=== PATIENT | male | born 1960 | race Caucasian/White ===

== ENCOUNTER 2024-07-25 06:58 | Observation (INO) ==
--- NOTE | 2024-07-16 10:32 | Anesthesiology Consultation ---
Date of Service July 16, 2024 Assessment & Plan (1) Encounter for pre-operative examination: Chart Review Chart Review: Acceptable Risk for Surgery and Patient NOT seen in Pre Admission Testing -Infectious Disease screening: Per PAT nursing assessment on 07/15/24. No known infectious disease contacts in past 10 days or current infectious disease symptoms. No recent travel outside the country. History Surgery Operation Date: 07/25/24 07:30 Proposed Procedures p Transurethral Resection Prostate - Alexander Christensen, Height/Weight Height: 5 ft 10 in Weight: 92.986 kg Allergies Allergy/AdvReac Type Severity Reaction Status Date / Time adhesive Allergy Intermediate Rash Verified 07/15/24 15:03 Penicillins Allergy Unknown Unknown Verified 07/15/24 15:03 Medications Home Medications Medication Instructions Recorded Confirmed Last Taken dutasteride 0.5 mg capsule 0.5 mg PO QPM 07/15/24 07/15/24 Unknown (Avodart) tamsulosin 0.4 mg capsule (Flomax) 0.4 mg PO QPM 07/15/24 07/15/24 Unknown Past Medical History Medical History Adverse effect of anesthesia "When I had my knee procedure at [facility] in 1995 I had a reaction from the anesthesia where I got sweaty and clammy" pt unsure of what was given BPH (benign prostatic hyperplasia) Hypertension "regulated with tamsulosin" Kidney stones "according to my doctor, they are there" as per patient Migraines Occular Snoring Past Family History Family History Father BPH (benign prostatic hyperplasia) December 2022 - urinary retention requiring ED visit - several subsequent obstructions of Sandhu catheter due to blood clots. During irrigation of catheter, a bladder diverticula ruptured requiring surgery Grandfather Diabetes Prostate cancer Grandmother Hypertension Past Surgical History Surgical History Hx of arthroscopy of right knee x2 [facility] Meniscus Tear then ACL repair/Chondroplasty Hx of colonoscopy (2019) Hx of wisdom tooth extraction Social History Smoking Status: Never smoker Do You Dip or Chew Tobacco: No Hx Alcohol Use: Yes Alcohol type: beer alcohol intake frequency: a few times a week Hx Substance Use: No substance use type: does not use Lab Results Anesthesia Preop Results Results Anesthesia Widget: WBC 5.61 K/ul (4.8-10.8) 07/05/24 Hgb 15.5 g/dl (14.0-18.0) 07/05/24 Hct 45.4 % (42.0-52.0) 07/05/24 Plt 189 K/uL (130-400) 07/05/24 Na 139 mmol/L (136-145) 07/05/24 K 3.9 mmol/L (3.5-5.1) 07/05/24 Cl 105 mmol/L (98-107) 07/05/24 CO2 30 mmol/L (21-32) 07/05/24 BUN 19 mg/dl (6-23) 07/05/24 Creat 1.03 mg/dl (0.6-1.4) 07/05/24 Glucose Level 130 mg/dl (70-99(Fasting)) H 07/05/24 Testing Laboratory Results 07/05/24= URINE CULTURE: No growth- less than 1000 colonies/ml Electrocardiogram Date: 07/05/24 Findings: + SB @ (58bpm) Poor R wave progression, consider anterior GA vs lead placement vs LVH (No physical limitations; no significant cardiac risk factors- discussed with Dr Samson jimenez to proceed) Chest X-Ray Date: 07/05/24 Findings: + NAD Pulmonary Parenchyma: Prominent bilateral aditi with increased bronchovascular markings. Lungs are clear bilaterally. No evidence of consolidation, collapse, or focal opacities. No pulmonary nodules identified. No evidence of pleural effusion or pleural thickening.
[~2024-07-25 06:58] MED LIST: DEXAMETHASONE SOD INJ 4 MG/ML VIAL ONE; GLYCOPYRROLATE 0.2 MG/ML VIAL ONE; LIDOCAINE 2% 2 ML VIAL/AMP(20MG/ML) INFIL ONE; MIDAZOLAM HCL 1 MG/ML 2ML VIAL ONE; ONDANSETRON INJ 2 MG/ML 2 ML VIAL ONE; PROPOFOL IV EMULSION 10 MG/ML 20 ML VIAL IV ONE; fentaNYL citrate PF 100 MCG/2 ML VIAL ONE
--- OUTSIDE RECORDS SUMMARY | 2024-07-25 07:02 | External Medical Summary | Continuity of Care Document ---
Author Name Unknown Organization [facility] [address] [facility] 2 [address] [id number] Care Team Providers Care Veterinary Technician Instructor Name Role Phone Myrtle Cabrera Primary Care Physician [phone] Encounter [facility] [id number] Date(s): 07/04/24 - 07/04/24 [facility] [address] [facility] [address] [id number] Encounter Diagnosis Seborrheic keratoses(Discharge Diagnosis) - 07/04/24 Roper angioma(Discharge Diagnosis) - 07/04/24 History of skin cancer(Discharge Diagnosis) - 07/04/24 Family history of skin cancer(Discharge Diagnosis) - 07/04/24 Discharge Disposition: Home or Self Care Attending Physician: TISHA Merlos Dawn M Allergies, Adverse Reactions, Alerts Substance Criticality Severity Reaction Reaction Severity Status penicillins unknown Active Assessment and Plan Extracted from: Title:Dermatology Office Visit Note Author:Jere wagn PA-C, Dawn M Date:07/04/24 1.Seborrheic keratoses SEBORRHEIC KERATOSES - - chronic and stable - discussed the likely benign and genetic nature of these lesions. Watchful waiting. 2.Roper angioma chronic and stable -ROPER ANGIOMAS - discussed the likely benign and genetic nature of these lesions. Watchful waiting. 3.History of skin cancer 4.Family history of skin cancer Reviewed sun protection with SPF 30 or higher applied every 80 minutes and use of sun protective clothing and a hat. Call with questions or concerns. Follow up 12 months. Patient in agreement with plan Immunizations Given and Recorded Vaccine Date Status Refusal Reason SARS-CoV-2 mRNA-1273 (6y+ bivalent) 1 05/18/22 Rec orded SARS-CoV-2 (COVID-19) mRNA-1273 vaccine 2 06/01/21 Recorded SARS-CoV-2 (COVID-19) mRNA-1273 vaccine 3 11/16/20 Recorded SARS-CoV-2 (COVID-19) mRNA-1273 vaccine 4 10/19/20 Recorded zoster vaccine, inactivated 07/07/20 Given zoster vaccine, inactivated 12/02/19 Given tetanus/diphtheria/pertuss, acel (Tdap) 12/02/19 G iven 1Result Comment: 2022-08-31: Historical information-source unspecified 2Result Comment: 2022-02-24: Historical information-source unspecified 3Result Comment: 2021-07-08: Historical information-source unspecified 4Result Comment: 2021-07-08: Historical information-source unspecified Medications Avodart 0.5 mg oral capsule Start: 11/17/23 11:36:00 AM EDT, 1 cap, PO, Daily, Disp# 90 cap, Refills: 3, Pharmacy: [id number] Start Date: 11/17/23 Stop Date: 11/11/24 Status: Ordered multivitamin Start: 07/08/21 8:38:00 AM EST, 1 tab, PO, Daily Start Date: 07/08/21 Status: Ordered tamsulosin 0.4 mg oral capsule Start: 12/05/23 10:05:00 AM EDT, 2 cap, PO, Daily, Disp# 180 cap, Refills: 3, Pharmacy: [id number] Start Date: 12/05/23 Status: Ordered Mental Status 07/04/24 Barriers to Learning one year None evide nt Mandatory Health Literacy Documentation Yes Health Literacy Communication Barriers N ever Primary Language Romansh Problem List Condition Confirmation Course Effective Dates Status Health St atus Informant BPH (benign prostatic hyperplasia) Confirmed Active Tremor of left hand Confirmed Active Chronic left hip pain Confirmed Active History of basal cell carcinoma Confirmed Active Ocular migraine Confirmed Active Piriformis syndrome of left side Confirmed Active Diagnosis Diagnosis Type Effective Dates Health Status Clinical Service Informant Roper angioma Discharge Diagnosis 07/04/24 History of skin cancer Discharge Diagnosis 07/04/24 Family history of skin cancer Discharge Diagnosis 07/04/24 Seborrheic keratoses Discharge Diagnosis 07/04/24 Procedures Procedure Date Related Diagnosis Body Site Status Hip X-ray 1 10/03/23 Completed Electrodesiccation with curettage 11/16/22 Completed Shave biopsy 2 09/21/22 Completed Colonoscopy 3 12/31/19 Completed Shave biopsy and cauterizati on of skin 4 07/22/19 Completed Electrodesiccation with curettage 03/19/19 Completed Electrodesiccation with curettage 03/19/19 Completed Electrodesiccation with curettage 03/19/19 Completed Mohs micrographic surgery 03/19/19 Completed Shave biopsy 5 12/20/18 Completed ACL - Anterior cruciate liga ment rupture Completed Chondroplasty Completed Meniscus Completed 1Mild osteoarthritis without acute fracture or dislocation 2right upper arm 3COLO to cecum normal. Repeat colonoscopy 10 years 4right mid back shave E D & C 5x6 right superior ear right posterior shoulder left chest left clavicle left shoulder left upper arm Social History Social History Type Response Smoking Status Never smoked cigaret felice Sex Male Sex Representation Male (finding) Dermatology Outpatient Note * TISHA Merlos Dawn M: PERFORM Event Display: Dermatology Outpt Note Authored Date: [id number] Chief Complaint skin check spot on each wrist may be new History of Present Illness Melissa Marinelli is a 63 year old patient returns to the clinic with a chief complaint ofskin check spot on each wrist may be new. hx basal cell, squamous cell. s/p Mohs surgery for BCC at R superior helix on 03/19/19. ED&C of SBCC right upper arm 11/16/22 Today,he denies itching, bleeding, oozing, crusting or evolving lesions. Patient has a personal history of SCC and BCC Family history: both parents had skin cancer Patient does use sunscreen. Patient reports history of blistering sunburns/tanning beds. He owns a boat. 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 Review of Systems Denies fever, chills, sweats, night sweats, weight loss, headache, visual change, stomach upset diarrhea and joint pain. Physical Exam Constitutional: Generally well appearing, well developed. Appears stated age. Eyes: Conjunctivae and lids without noted inflammation, lesion, mass, deformity or drainage. Cardiovascular: Swelling of the lower extremities not noted. Extremities pink, warm and dry. Extremities: Digits and nails without clubbing, cyanosis, petechiae, signs of ischemia, infectionor inflammation. Neurological / Psychiatric: Oriented to person, place and time. Appropriate mood and affect. No notable depression, anxiety or agitation. Complete skin exam was performed today including head, neck, chest, axillae, abdomen, groin, buttocks, back, bilateral upper and bilateral lower extremities. Palpation of the scalp, inspection of hair of scalp, eyebrows and finger and toenails was performed. The exam was within normal limits the exception of: PATIENT DECLINED AUTOMOTIVE DIAGNOSTIC TECHNICIAN BACK. CHESThyperkeratotic plaques and papules consistent with seborrheic keratoses ABDOMEN - multiple 2-3mm red vascular papules consistent with roper angiomas Findings otherwise unremarkable. No evidence of recurrence of SCC or BCC. Assessment/Plan 1.Seborrheic keratoses SEBORRHEIC KERATOSES - - chronic and stable - discussed the likely benign and genetic nature of these lesions. Watchful waiting. 2.Roper angioma chronic and stable -ROPER ANGIOMAS - discussed the likely benign and genetic nature of these lesions. Watchful waiting. 3.History of skin cancer 4.Family history of skin cancer Reviewed sun protection with SPF 30 or higher applied every 80 minutes and use of sun protective clothing and a hat. Call with questions or concerns. Follow up 12 months. Patient in agreement with plan Problem List/Past Medical History Ongoing BPH (benign prostatic hyperplasia) Chronic left hip pain History of basal cell carcinoma Ocular migraine Piriformis syndrome of left side Tremor of left hand Procedure/Surgical History Hip X-ray| Service Date: 10/03/2023Electrodesiccation with curettage| Service Date: 11/16/2022Shave biopsy| Service Date: 3Colonoscopy| Service Date: 12/31/2019ave biopsy and cauterization of skin| Service Date: 07/22/2019Electrodesiccation with curettage| Service Date: 03/19/2019Electrodesiccation with curettage| Service Date: 03/19/2019Electrodesiccation with curettage| Service Date: 03/19/2019Mohs micrographic surgery| Service Date: 03/19/2019Shave biopsy| Service Date: 12/20/2018ChondroplastyACL - Anterior cruciate ligament ruptureMeniscus Medications dutasteride(Avodart 0.5 mg oral capsule), 0.5 mg= 1 cap, PO, Daily, 3 refills multivitamin, 1 tab, PO, Daily tamsulosin(tamsulosin 0.4 mg oral capsule), 2 cap, PO, Daily Allergies penicillinsunknown Social History Smoking Status Never smoked cigarettes Alcohol Use:Current Type:Beer, Wine, Liquor Frequency:3-5 times per week Employment/School Status: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 Exercise Duration (average number of minutes):45 Times per week:1-2 times/week Exercise type:Rucking and hike 6-8 miles Home/Environment Lives with:Spouse Living situation:Home/Independent Feels unsafe at home:No - Comments: Home has smoke detectors. Wears seatbelt in the car. Uses sun protection when outdoors. Nutrition/Health Type of diet:Regular Caffeine intake amount:Drinks 1 can of soda a week and 1 cup of tea/day Other Details:Has not had a blood transfusion. No tattoos and has not been incarcerated. Has donated blood in the early . Sexual Sexually active:Yes Current partners:1 Self described orientation:Straight or heterosexual Substance Abuse - Denies Substance Abuse Tobacco - Denies Tobacco Use Family History BPH - Benign prostatic hypertrophy: Father. Gallbladder disease: Father. Guillain [place] syndrome: Father. Heart attack: PGM. Hypertension: PGM. Malignant tumor of lung: PGF. Stroke: PGM. Type II diabetes mellitus: MGF. Health Status Family Member(s) Electronic Signature on File Electronically Reviewed/Signed by: BALBINA Deshpande Author Signature Dt/Tm:07/04/2024 03:03 PM Department of Family Medicine Department of Dermatology [facility] Patient Care team information Care Team Personnel Name: TISHA Cabrera, Myrtle Craig Position: Physician Asst Exmpt - Family Med Member Role: Primary Care Provider Address: [address] [place] [address], [place] [address] [place] Care Team Related Persons Name: GAURI MARINELLI"
--- NOTE | 2024-07-25 07:08 | History & Physical Report ---
Date of Service July 25, 2024 Assessment & Plan (1) BPH w urinary obs/LUTS: (2) Elevated PSA: (3) Nephrolithiasis: (4) Renal cyst: Plan Large prostate with obstruction. Risks and benefits discussed at length for procedure. These include bleeding, infection, injury to surrounding tissues or organs, and risks associated with anesthesia. Patient states understanding and agrees to proceed. Will sign consent and proceed. Plan for Cystoscopy with TURP. Observation overnight post op History of Present Illness Primary Care Provider: Myrtle Cabrera PA-C Patient here for procedure. No changes in medical issues. No major changes in urinary issues. Continued issues and concerns. No change in pain or discomfort. No severe fevers or chills. No chest pain or shortness of breath. Risks and benefits discussed at length for procedure. These include bleeding, infection, injury to surrounding tissues or organs, and risks associated with anesthesia. Patient and/or family states understanding and agrees to proceed. Consent and supporting information completed. Allergies Allergy/AdvReac Type Severity Reaction Status Date / Time adhesive Allergy Intermediate Rash Verified 07/15/24 15:03 Penicillins Allergy Unknown Unknown Verified 07/15/24 15:03 Home Medications Medication Instructions Recorded Confirmed Type dutasteride 0.5 mg capsule 0.5 mg PO QPM 07/15/24 07/15/24 History (Avodart) tamsulosin 0.4 mg capsule (Flomax) 0.4 mg PO QPM 07/15/24 07/15/24 History Past Med/Surg History Problem List Encounter for pre-operative examination Renal cyst (Chronic) Nephrolithiasis (Acute) Elevated PSA (Acute) BPH w urinary obs/LUTS (Chronic) Medical History Kidney stones "according to my doctor, they are there" as per patient Migraines Occular Hypertension "regulated with tamsulosin" Snoring BPH (benign prostatic hyperplasia) Adverse effect of anesthesia "When I had my knee procedure at [facility] in 1995 I had a reaction from the anesthesia where I got sweaty and clammy" pt unsure of what was given Surgical History Hx of wisdom tooth extraction Hx of colonoscopy (2019) Hx of arthroscopy of right knee x2 [facility] Meniscus Tear then ACL repair/Chondroplasty Family History Father BPH (benign prostatic hyperplasia) December 2022 - urinary retention requiring ED visit - several subsequent obstructions of Sandhu catheter due to blood clots. During irrigation of catheter, a bladder diverticula ruptured requiring surgery Grandfather Diabetes Prostate cancer Grandmother Hypertension Social History Smoking Status: Never smoker Second Hand Exposure: No; Do You Dip or Chew Tobacco: No; Tobacco Cessation Education Requested by Patient: No Hx Alcohol Use: Yes Alcohol type: beer Hx Substance Use: No Preferred Language: Persian Communication Ability: Effective Steel Handler Required: No Beliefs That Will Affect Care: None marital status: Current Living Situation: Spouse current occupational status: employed current occupation: Teacher Other Information That Helps Us Care for You: No Feels Safe at Home: Yes Safety Concerns: Feels Safe At This Time Assistive Devices: Glasses Review of Systems All systems reviewed & are unremarkable except as noted in HPI & below Physical Exam Physical Exam: General: Alert/Arousable. No Acute illness. . HEENT: Inspection normal. Normal inspection of face. Normal inspection of neck. Psychologic: Normal affect/No change in mentation. Respiratory: No use of accessory muscles. No respiratory changes or exacerbation or changes with tachypnea or dyspnea. Cardiovascular: No tachycardia Skin: [place] and Dry. No new rashes or visible lesions. Abdomen: Normal inspection. No guarding. PG Care Time/CCT Total # of Minutes Spent Total Time Spent with Patient: Total time spent is greater than 50% in coordination of care (as documented) at patient's floor/unit and/or counseling patient: Coding Level of Care Code None Diagnoses BPH w urinary obs/LUTS N40.1; N13.8 Elevated PSA R97.20 Nephrolithiasis N20.0 Renal cyst N28.1
[2024-07-25] MEDS ORDERED: oxyCODONE/ACETAMINOPHEN 5mg/325mg TAB PO PRN (07:23)
[2024-07-25] MEDS ORDERED: oxyBUTYnin chloride 5 MG TAB PO PRN (07:23)
[2024-07-25] MEDS ORDERED: PHENAZOPYRIDINE HCL 200 MG TAB PO PRN (07:23)
[2024-07-25] MEDS ORDERED: MoRPHine SULFATE 2 MG/ML CARP IV PRN (07:23)
[2024-07-25] MEDS: LACTATED RINGER'S 1,000 ML IV SCH (07:30)
[2024-07-25] MEDS ORDERED: fentaNYL citrate PF 100 MCG/2 ML VIAL IV PRN (07:41)
[2024-07-25] MEDS ORDERED: ePHEDrine sulfate 50 MG/ML AMP IV PRN (07:41)
[2024-07-25] MEDS ORDERED: ATROPINE SULFATE 0.1 MG/ML 10ML SYR IV PRN (07:41)
[2024-07-25] MEDS ORDERED: PROMETHAZINE HCL 6.25 MG in SODIUM CHLORIDE 0.9% 50 ML IV PRN (07:41)
[2024-07-25] MEDS: ceFAZolin 2000MG 2,000 MG/15 ML SYR IV SCH ×2 (08:16→08:46)
[2024-07-25] MEDS ORDERED: ePHEDrine sulfate 50 MG/5 ML SYR ONE (09:14)
--- NOTE | 2024-07-25 09:42 | Operative Report ---
PG Post Operative Report Pre & Post Diagnosis Operation Date: 07/25/24 08:35 Pre-Op Diagnosis: Benign prostatic hyperplasia with Urinary Obstruction / Lower Urinary Tract Post-Op Diagnosis: Benign prostatic hyperplasia with Urinary Obstruction / Lower Urinary Tract I identified the patient and participated in the time-out.: Yes Procedure Operation Date: 07/25/24 08:35 Actual Procedures p Transurethral Resection of Prostate with dilation of the urethra (Not Applicable) - Alexander Christensen DO Surgeon Alexander Christensen, II, DO Park Recreation Manager None Estimated Blood Loss 10 Findings Consistent with Post-Op Diagnosis Large Prostate with obstruction. Specimens Prostate adenoma. Drains 22Fr [address] C[address]ter Anesthesia Type General Complications none Disposition Disposition: Recovery Room Indications Patient with obstruction due to prostate enlargement. Risks and benefits discussed at length. Stricture of the meatus dilated Description of Procedure Patient was consented and brought back to the operating room. Patient was placed under anesthesia in the supine position and moved to the dorsal lithotomy po sition. Patient was prepped and draped in the regular sterile fashion. A time out was completed. A 30degree Cystoscope was placed into the bladder and the entire bladder was examined. The meatus was narrowed with area of stricture and was dilated. This allowed the scope to be placed. The UO's were identified as well as the bladder neck, trigone, dome, and the other important landmarks. The prostatic urethra and large lobes/adenoma was assessed and the veru and bladder neck identified and area/size was assessed. The resection scope was placed and the fine bipolar loop was selected. Starting at the 5 and 7 o'clock positions, a channel was created from bladder neck to the veru. This was resected down. Attention was then taken to the 1 and 11 clock position. The prostate was re sected down to capsule fibers. The resection was then taken down towards the posterior channel. Significant prostate tissue was debulked. The Specimen was removed and sent for analysis. The resection bed and any bleeding areas were fulgurated/cauterized and the entire area inspected. All bleeding was controlled. The bladder was inspected a final time. The bladder was emptied and irrigated. All specimen and debris was removed. The scope was removed with the bladder partially full. A catheter was placed and balloon elevated. This was easily irrigated. The patient was cleaned, aroused from anesthesia, and transferred to the pacu in stable condition having tolerated the procedure well with no complications. I was present and participated in all aspects of the procedure. The patient will be monitored in the PACU until transferred. Will plan to maintain catheter for approximately 5 to 7 days. Will monitor overnight. Will have patient follow-up in approximately 7 days for catheter removal and pathology review I attest to the content of the Intraoperative Record and any orders documented therein. Any exceptions are noted below.
[2024-07-25 10:14] LABS: Hematocrit (blood only) 41.9 % (42.0-52.0); Hemoglobin 14.6 g/dl (14.0-18.0); Mean Corpuscular Hemoglobin 31.1 pg (25.0-34.0); Mean Corpuscular Hgb Conc 34.8 g/dL (32.0-36.0); Mean Corpuscular Volume 89.3 fL (80.0-100.0); Mean Platelet Volume 9.7 fL (9.4-12.4); Platelet Count 169 K/uL (130-400); RDW Coefficient of Variation 12.7 % (11.5-14.5); RDW Standard Deviation 41.6 fL (36.4-46.3); Red Blood Count 4.69 M/uL (4.70-6.10); White Blood Count 5.16 K/ul (4.8-10.8)
[2024-07-25] MEDS: DIATRIZOATE MEGLUMINE 30% 100ML VIAL INSTIL ONE (10:24)
[2024-07-25 10:34] LABS: Albumin Globulin Ratio 1.9 (0.9-2); Albumin Level 3.9 gm/dl (3.4-5.0); BUN Creatinine Ratio 15.5 (10-20); Bilirubin,Total 0.8 mg/dl (0.2-1.0); Calcium 8.6 mg/dl (8.6-10.3); Creatinine Clr Calc Pharmacy 90.5 ml/min; Globulin 2.1 gm/dl (2.5-4.0); Potassium 4.1 mmol/L (3.5-5.1)
--- NOTE | 2024-07-25 11:17 | Anesthesiology Progress Note ---
Date of Service July 25, 2024 Anesthesia Post Procedure Vital Signs Vital Signs: Temp Pulse Pulse Resp BP Pulse Ox O2 Del Method 07/25/24 11:00 60 12 134/83 94 Room Air 07/25/24 10:45 59 L 14 133/82 94 Room Air 07/25/24 10:30 67 12 133/85 94 Room Air 07/25/24 10:20 36.3 C L 60 12 130/77 95 Room Air 07/25/24 10:10 59 L 18 139/76 95 Room Air 07/25/24 10:00 59 L 16 146/72 H 97 Oxymask 07/25/24 09:50 57 L 14 128/76 96 Oxymask 07/25/24 09:40 36.6 C 69 15 131/80 96 Oxymask 07/25/24 07:25 36.5 C 63 20 144/92 H 93 Room Air O2 Flow Rate 07/25/24 11:00 07/25/24 10:45 07/25/24 10:30 07/25/24 10:20 07/25/24 10:10 07/25/24 10:00 5 07/25/24 09:50 5 07/25/24 09:40 5 07/25/24 07:25 Transfer of Care Handoff Completed per policy Notes Mental Status: alert / awake / arousable and participated in evaluation Nausea / Vomiting: adequately controlled Pain: adequately controlled Airway Patency, RR, SpO2: stable & adequate BP & HR: stable & adequate Hydration State: stable & adequate Anesthetic Complications: no major complications apparent and Pt Satisfied with anesthetic care
[2024-07-25] MEDS: DOCUSATE SODIUM 100 MG CAP PO SCH (12:55)
[2024-07-25 19:17] VITALS: RESP 16
[2024-07-25] MEDS: TAMSULOSIN HCL 0.4 MG CAP PO SCH (20:07)
[2024-07-26 08:15] LABS: Hematocrit (blood only) 42.3 % (42.0-52.0); Hemoglobin 14.7 g/dl (14.0-18.0); Mean Corpuscular Hemoglobin 31.1 pg (25.0-34.0); Mean Corpuscular Hgb Conc 34.8 g/dL (32.0-36.0); Mean Corpuscular Volume 89.4 fL (80.0-100.0); Mean Platelet Volume 9.8 fL (9.4-12.4); Platelet Count 185 K/uL (130-400); RDW Coefficient of Variation 12.8 % (11.5-14.5); RDW Standard Deviation 41.9 fL (36.4-46.3); Red Blood Count 4.73 M/uL (4.70-6.10)
[2024-07-26 08:51] LABS: Bilirubin,Total 1.2 mg/dl (0.2-1.0)
[2024-07-26 08:57] LABS: Albumin Globulin Ratio 1.6 (0.9-2); BUN Creatinine Ratio 18.3 (10-20); Creatinine Clr Calc Pharmacy 94.4 ml/min; Globulin 2.5 gm/dl (2.5-4.0); Total Protein 6.5 gm/dl (6.0-8.3)
--- NOTE | 2024-07-26 10:20 | Urology Progress Note ---
Date of Service July 26, 2024 Assessment & Plan (1) BPH w urinary obs/LUTS: Plan POD #1 s/p Transurethral Resection of Prostate with dilation of the urethra with Dr. Christensen Doing well, progressing as expected Afebrile with stable vitals. Labs reviewed - WBC 14.10, Hemoglobin 14.7, Creatinine 0.[address] Sandhu catheter intact, patent and draining clear urine with CBI on slow CBI clamped @ 0950- will reassess later this AM Maintain Sandhu catheter Anticipate home with Sandhu catheter later today presuming urine appropriate and he continues to progress as expected Expected clinical course reviewed, all questions answered Will arrange outpatient follow-up with our service for voiding trial Pt reassessed Urine remains clear off CBI Stable for discharge home with Sandhu catheter in place Discharge instructions reviewed, all questions were answered Admission and Anticipated Discharge Date Admission Date: July 25, 2024 Subjective Pt seen at bedside today Awake and sitting in bedside chair on arrival No acute distress Overall feeling well Denies pain No f/c/n/v Sandhu draining clear yellow urine with CBI on slow Tolerating diet Ambulating without issue Review of Systems Constitutional: as per Subjective / HPI Genitourinary: + as per Subjective / HPI Physical Exam Constitutional: no acute distress Respiratory: no respiratory distress and no labored breathing Neurologic: moves all extremities and awake Psychiatric: A+Ox3, euthymic affect Genitourinary: Sandhu intact Results & Data Vital Signs (Past 12 Hours) Vital Signs Temp Pulse Resp BP Pulse Ox O2 Del Method 07/26/24 07:49 36.6 C 62 16 132/74 94 Room Air 07/26/24 03:13 36.8 C 67 16 109/69 92 Room Air 07/25/24 23:22 36.7 C 70 16 122/69 92 Room Air PG Care Time/CCT Total # of Minutes Spent Total Time Spent with Patient: Total time spent is greater than 50% in coordination of care (as documented) at patient's floor/unit and/or counseling patient: Coding Level of Care Code None Diagnoses BPH w urinary obs/LUTS N40.1; N13.8
[2024-07-26 10:39] VITALS: BP 143/76; PULSE 67; TEMP 97.7; O2SAT 96
--- NOTE | 2024-07-26 15:01 | Discharge Summary ---
Date of Service July 26, 2024 Admission HPI Per Admitting Provider Patient here for procedure. No changes in medical issues. No major changes in urinary issues. Continued issues and concerns. No change in pain or discomfort. No severe fevers or chills. No chest pain or shortness of breath. Risks and benefits discussed at length for procedure. These include bleeding, infection, injury to surrounding tissues or organs, and risks associated with anesthesia. Patient and/or family states understanding and agrees to proceed. Consent and supporting information completed. Admission Exam Per Admitting Provider General: Alert/Arousable. No Acute illness. . HEENT: Inspection normal. Normal inspection of face. Normal inspection of neck. Psychologic: Normal affect/No change in mentation. Respiratory: No use of accessory muscles. No respiratory changes or exacerbation or changes with tachypnea or dyspnea. Cardiovascular: No tachycardia Skin: Many and Dry. No new rashes or visible lesions. Abdomen: Normal inspection. No guarding. Principal Diagnosis BPH w/LUTS Discharge Exam Constitutional well developed and well nourished; no acute distress Respiratory normal respiratory effort; no respiratory distress and no labored breathing Musculoskeletal Head/Neck/Chest: normocephalic Skin no rashes, warm and dry Neurologic moves all extremities and awake Psychiatric A+Ox3, euthymic affect Genitourinary Sandhu intact and draining clear yellow urine Discharge Data Allergies Allergy/AdvReac Type Severity Reaction Status Date / Time adhesive Allergy Intermediate Rash Verified 07/25/24 07:18 Penicillins Allergy Unknown Unknown Verified 07/25/24 07:18 Procedures Performed Operation Date: 07/25/24 08:35 Actual Procedures p Transurethral Resection Prostate(Not Applicable) - Alexander Christensen, DO Hospital Course (1) BPH w urinary obs/LUTS: Plan POD #1 s/p Transurethral Resection of Prostate with dilation of the urethra with Dr. Christensen Doing well, progressing as expected Afebrile with stable vitals. Labs reviewed - WBC 14.10, Hemoglobin 14.7, Creatinine 0.[address] Sandhu catheter intact, patent and draining clear urine with CBI on slow CBI clamped @ 0950- will reassess later this AM Maintain Sandhu catheter Anticipate home with Sandhu catheter later today presuming urine appropriate and he continues to progress as expected Expected clinical course reviewed, all questions answered Will arrange outpatient follow-up with our service for voiding trial Pt reassessed Urine remains clear off CBI Stable for discharge home with Sandhu catheter in place Discharge instructions reviewed, all questions were answered Total Time Total Time Spent Total Time Spent (In Minutes): 15 Discharge Plan Discharge Items Patient Disposition: Home - Self-Care Reason For Visit: BPH with Urinary Obstruction / Lower Urinary Tract Discharge Diagnosis: BPH with urinary obstruction/LUTS Condition on Discharge: Good Activity: Per Instructions section Bathing Comment: Ok to shower. No tub baths or soaks. Driving/Machine Use: Do not drive if taking prescription pain medication. Non-emergency contact: Surgeon and Urologist Call non-emergency contact if: you have any medication questions, your symptoms worsen, your pain is not controlled and you have a fever Follow-up/Referrals: Alexander Christensen DO [Physician] - 08/02/24 11:45 am Myrtle Cabrera PA-C [Primary Care Provider] - Diet: Regular Addtl Attending Provider Instructions: Please take all medications as prescribed and keep all follow-ups as scheduled. Please call our office at [phone] with any questions, concerns or need to reschedule appointments for any reason. We are happy to assist you. An antibiotic (Bactrim) was sent to your pharmacy. Please take as directed. Tips for your recovery at home: Dont be alarmed by brownish or reddish blood or clots in your urine. This is a result of the procedure. This may occur off and on for weeks to months after the procedure but should continue to improve. Drink plenty of fluids during the day (enough to keep your urine very light colored). This will help keep a healthy flow of urine. Do not lift >25 lbs until your followup Avoid constipation. Please use a stool softener (Colace) for the first two weeks after your procedure if needed Be sure to finish the antibiotics as prescribed. If you go home with a catheter, please wash tubing where it enters your body twice daily with mild soap (Dove or Dial). Once your catheter is removed, expect some blood in your urine and some burning when you urinate. You should have an appointment to have this removed, if you do not please call our office to arr veronica. When to call [facility] [place] [facility] [place] [phone]: Your urine contains heavy blood clots or your catheter stops draining You are constantly leaking urine Fever of 101F or higher, chills, nausea, or vomiting Your pain is not relieved with medication Pending Studies at Discharge: Yes (pathology) Stand-Alone Forms: My [facility], Smoking Cessation Medications and DC Order Prescriptions: New sulfamethoxazole-trimethoprim [Bactrim DS] 800-160 mg tablet 1 tab PO BID 5 Days Qty: 10 0RF Continued tamsulosin [Flomax] 0.4 mg capsule 0.4 mg PO QPM dutasteride [Avodart] 0.5 mg capsule 0.5 mg PO QPM Discharge Orders: Discharge Order (Routine); Ordered 07/26/24 Ordered By: Milli Tate/Other Patient Handouts: Urinary Catheter Bag Empty Clean Admission Data Admit Date/Time: 07/25/24 07:23 Attending Provider: Alexander Christensen Admit Provider: Alexander Christensen Primary Care Provider: Myrtle Cabrera Other Interventions: Discharge Summary Assessment (RN) Last Done: 07/26/24 12:18 Coding Level of Care Code 12679 IN/OBS DISCH 30 MIN/LESS Diagnoses BPH w urinary obs/LUTS N40.1; N13.8
== END 2024-07-26 13:31 | disposition home or self-care (01) ==
LOC: ASU 06:58 → PACUINP 06:58 → 3N 13:58